=== PATIENT | female | born 1970 | race Caucasian/White ===

== ENCOUNTER → 2021-07-17 | Outpatient (CLI) | payer OTHER ==
[~2021-07-17] MED LIST: CALCIUM500 MG PO; IRON325 M1 PO; LEXAPRO 10 MG T10 MG PO; MAGNESIUM250 M1 PO; OMEPRAZOLE 20 M20 M1 PO; TOLTERODINE TART4 MG PO; VITAMIN D3250 MC2 PO
== END ==
LOC: LAB 11:15
PROVIDERS: ATTEND Student in an Organized Health Care Education/Training Program
DX: Z20.822 Contact with and (suspected) exposure to COVID-19 (principal)

== ENCOUNTER → 2021-07-20 | Outpatient (CLI) | payer OTHER ==
[~2021-07-20] VITALS: Ht 165.1 cm; Wt 65.8 kg
--- NOTE | 2021-07-23 10:08 | PATH ---
[facility] [address] [address] PATHOLOGY RPT PROCEDURE Name: CARMELA TANNER Room #: REG GUI Brunilda.#: [id number] Admission: 07/20/21 Date of : 70 Discharge: Report #: [id number] Path Case #: [id number] [facility] Accession Number: [id number] . 01 Material submitted: . PART A: colon - ASCENDING COLON POLYP. Modifiers: ascending PART B: colon - TRANSVERSE COLON POLYP. Modifiers: transverse . 01 Clinical history: . COLONOSCOPY SCREENING COLON CANCER POLYPS . 02 Diagnosis: A. Colonic mucosa (ascending colon polyp): - Hyperplastic polyp. . B. Colonic mucosa (transverse colon polyp): - Small tubular adenoma identified. (EULA:jen; 07/22/2021) QTP 07/22/2021 1528 Local . 02 Comment: We find no evidence of high grade dysplasia or of malignancy. (EULA:pit; 07/22/2021) . 02 Electronically signed: . Jaskaran Pacheco MD, Pathologist NPI- [id number] . 01 Gross description: . A. The specimen is received in formalin, labeled "Carmela Tanner, ascending colon polyp". Received are two segments of pale mcallister tissue measuring 0.5 and 0.6 cm in maximum dimensions. The specimen is submitted entirely in cassette A1. . B. The specimen is received in formalin, labeled "Carmela Tanner, transverse colon polyp". Received are multiple segments of pale mcallister tissue ranging in size from 0.4-1.0 cm in maximum dimensions. The specimen is submitted entirely in cassette B1. (CAA; 07/21/2021) QAC/QAC 07/21/2021 1045 Local . 02 Pathologist provided ICD-10: K63.5, D12.3 . 02 CPT . [address] [address] PATHOLOGY RPT PROCEDURE Name: CARMELA TANNER Room #: REG CLI [facility].#: [id number] Admission: 07/20/21 Date of : 70 Discharge: Report #: [id number] Path Case #: [id number] Specimen Comment: A courtesy copy of this report has been sent to [phone], [phone] Specimen Comment: [id number] Specimen Comment: Report sent to / DR TOUSSAINT Specimen Comment: A duplicate report has been generated due to demographic updates. Performed at: 01 [facility] [place] [address] [id number] MD Rory Anton MD Phone: [phone] Performed at: 02 [facility] [place] [id number] [address] [id number] MD Jaskaran Pacheco MD Phone: [phone]
== END | disposition home or self-care (01) ==
LOC: GI
PROVIDERS: ATTEND Internal Medicine Gastroenterology
DX: Z12.11 Encounter for screening for malignant neoplasm of colon (principal); D12.3 Benign neoplasm of transverse colon; K21.9 Gastro-esophageal reflux disease without esophagitis; F32.9 Major depressive disorder, single episode, unspecified; Z98.890 Other specified postprocedural states; Z90.49 Acquired absence of other specified parts of digestive tract; Z90.710 Acquired absence of both cervix and uterus; Z87.891 Personal history of nicotine dependence; Z79.899 Other long term (current) drug therapy
CPT/HCPCS: 62110; 62900